=== PATIENT | male | born 1955 | race Caucasian/White ===

== ENCOUNTER 2016-07-30 11:15 | Observation (INO) | payer OTHER ==
[~2016-07-30] VITALS: Ht 177.8 cm; Wt 103.0 kg
[~2016-07-30 11:15] MED LIST: ASPIR-LOW81 MG PO; ATORVASTATIN CA80 MG PO; BRILINTA90 MG PO; GLIPIZIDE5 MG PO; GLUCOPHAGE500 MG PO; GLUCOPHAGE850 MG PO; LOPRESSOR25 MG PO; METFORMIN HCL500 MG PO; TYLENOL W/COD1 COMB1 PO; ZESTRIL5 MG PO
[2016-07-30 12:09] LABS: HEMATOCRIT 41.3 % (38.0-50.0); MCH 29.8 PG (29.0-34.0); MCHC 34.9 G/DL (30.0-36.0); MCV 85.5 FL (86-99); MEAN PLAT.VOLUME 10.3 uM^3 (9.0-12.4); PLATELET COUNT 232 K/uL (156-360); RED BLOOD COUNT 4.83 M/uL (4.00-5.50); WHITE BLOOD COUNT 7.8 K/uL (4.1-10.2)
[2016-07-30 12:20] LABS: CHLORIDE 105 mEq/L (99-109); POTASSIUM 4.9 mEq/L (3.7-5.4); SODIUM 141 mEq/L (136-147)
[2016-07-30 12:22] LABS: GLUCOSE 136 mg/dL (70-99)
[2016-07-30 12:23] LABS: ANION GAP 10 MEQ/L (2-14)
[2016-07-30 12:26] LABS: GFR ESTIMATE (CALCULATED) > 59 mL/min/
[2016-07-30 12:27] LABS: UREA NITROGEN (BUN) 16 mg/dL (9-23)
[2016-07-30 12:30] LABS: TROP-I INTERPRETATION NEGATIVE; TROPONIN-I < 0.01 ng/mL (0.0-0.30)
[2016-07-30] MEDS ORDERED: ZESTRIL20 MG PO (14:36)
[2016-07-30] MEDS ORDERED: GLIPIZIDE XL5 MG PO (14:38)
[2016-07-30] MEDS ORDERED: LIPITOR40 MG PO (14:38)
[2016-07-30] MEDS ORDERED: ZOLPIDEM TARTRA10 MG PO (14:39)
[2016-07-30] MEDS ORDERED: ASPIR 8181 M1 PO (14:39)
[2016-07-30] MEDS ORDERED: CO Q-10100 MG PO (14:39)
[2016-07-30] MEDS ORDERED: ONE DAILY FOR1 EAC2 PO (14:40)
[2016-07-30] MEDS ORDERED: NEURONTIN300 MG PO (14:46)
[2016-07-30 16:00] VITALS: BP 134/73
[2016-07-30 16:42] LABS: POINT-OF-CARE METER ID UU13113831
[2016-07-30 18:56] LABS: TROP-I INTERPRETATION NEGATIVE; TROPONIN-I 0.02 ng/mL (0.0-0.30)
[2016-07-30 21:40] VITALS: BP 119/77
[2016-07-30 23:05] LABS: POINT-OF-CARE METER ID UU14162513
[2016-07-31 00:50] VITALS: BP 116/63
[2016-07-31 01:01] LABS: TROP-I INTERPRETATION NEGATIVE; TROPONIN-I 0.02 ng/mL (0.0-0.30)
[2016-07-31 04:51] VITALS: BP 114/72
[2016-07-31 06:05] LABS: HEMATOCRIT 39.4 % (38.0-50.0); MCH 30.1 PG (29.0-34.0); MCHC 34.3 G/DL (30.0-36.0); MCV 87.8 FL (86-99); MEAN PLAT.VOLUME 10.9 uM^3 (9.0-12.4); PLATELET COUNT 194 K/uL (156-360); RBC DIS.WIDTH-CV 13.3 % (11.8-14.6); RBC DIS.WIDTH-SD 42.4 % (39-53); RED BLOOD COUNT 4.49 M/uL (4.00-5.50); WHITE BLOOD COUNT 6.6 K/uL (4.1-10.2)
[2016-07-31 06:30] LABS: ANION GAP 9 MEQ/L (2-14); CHLORIDE 106 MEQ/L (99-109); GFR ESTIMATE (CALCULATED) > 59 mL/min/; GLUCOSE 121 mg/dL (70-99); HDL CHOLESTEROL 34 MG/DL (Desirable>=40); LDL CHOLESTEROL 58 mg/dL (Desirable<100); NON-HDL CHOLESTEROL 80 mg/dL (Desirable<160); POTASSIUM 4.1 MEQ/L (3.7-5.4); SAMPLE HEMOLYSIS CHECK 0; SAMPLE ICTERIC CHECK 0; SAMPLE LIPEMIA CHECK 0; SODIUM 142 MEQ/L (136-147); TOTAL CHOLESTEROL 114 mg/dL (Desirable<200); TRIGLYCERIDES 112 MG/DL (Normal: <150); UREA NITROGEN (BUN) 13 mg/dL (9-23)
[2016-07-31 06:59] LABS: Estimated Average Glucose 151 mg/dL (70-123); HEMOGLOBIN A1c (GLYCOHEMOGLOB) 6.9 % HGB (Below 5.7)
[2016-07-31 08:00] VITALS: BP 121/74
[2016-07-31 08:42] LABS: POINT-OF-CARE METER ID UU14162513
== END 2016-07-31 11:45 | disposition home or self-care (01) ==
LOC: EME 11:15 → 5WEST 13:43 → EDOF 13:43 → 5WEST 15:52
PROVIDERS: Hospitalist; Nurse Practitioner Adult Health; Physician Assistant Medical
DX: R07.89 Other chest pain (principal); R68.84 Jaw pain; I10 Essential (primary) hypertension; E78.5 Hyperlipidemia, unspecified; E11.9 Type 2 diabetes mellitus without complications; I25.10 Atherosclerotic heart disease of native coronary artery without angina pectoris; I25.2 Old myocardial infarction; Z98.61 Coronary angioplasty status; Z79.82 Long term (current) use of aspirin; Z79.84 Long term (current) use of oral hypoglycemic drugs
CPT/HCPCS: 70450; 71020; 80048; 80061; 82948; 83036; 84484; 85027; 93005; 99281; 99284; G0378; J1815

== ENCOUNTER 2016-09-09 06:36 | Inpatient (IN) | payer OTHER ==
[~2016-09-09] VITALS: Ht 180.3 cm; Wt 98.0 kg
[2016-09-09] VITALS (15 sets, daily range): BP systolic 84–145; BP diastolic 64–89
[~2016-09-09 06:36] MED LIST changes: +ASPIR 8181 M1 PO; +CO Q-10100 MG PO; +GLIPIZIDE XL5 MG PO; +LIPITOR40 MG PO; +NEURONTIN300 MG PO; +ONE DAILY FOR1 EAC2 PO; +ZESTRIL20 MG PO; +ZOLPIDEM TARTRA10 MG PO
[2016-09-09 07:03] LABS: EOSINOPHIL (%) 2.3 % (0-5); EOSINOPHIL COUNT 0.2 K/uL (0-0.3); HEMATOCRIT 41.9 % (38.0-50.0); IMMATURE GRANULOCYTE (%) 0.1 % (0.0-0.7); IMMATURE GRANULOCYTE COUNT 0.1 K/uL; LYMPHOCYTE COUNT 2.6 K/uL (1.0-2.8); MCH 29.4 PG (29.0-34.0); MCHC 34.4 G/DL (30.0-36.0); MCV 85.7 FL (86-99); MEAN PLAT.VOLUME 10.3 uM^3 (9.0-12.4); MONOCYTE (%) 10.3 % (3-12); MONOCYTE COUNT 0.7 K/uL (0-0.8); NEUTROPHIL (%) 50.4 % (45-76); NEUTROPHIL COUNT 3.6 K/uL (1.8-6.4); PLATELET COUNT 267 K/uL (156-360); RBC DIS.WIDTH-CV 13.2 % (11.8-14.6); RBC DIS.WIDTH-SD 40.9 % (39-53); RED BLOOD COUNT 4.89 M/uL (4.00-5.50); WHITE BLOOD COUNT 7.1 K/uL (4.1-10.2)
[2016-09-09 07:35] LABS: PROTHROMBIN TIME 10.4 (9.2-11.2)
[2016-09-09 07:46] LABS: TROP-I INTERPRETATION NEGATIVE; TROPONIN-I < 0.01 ng/mL (0.0-0.30)
[2016-09-09 08:25] LABS: AMYLASE 63 IU/L (1-118); ANION GAP 10 MEQ/L (2-14); CHLORIDE 104 MEQ/L (99-109); POTASSIUM 4.1 MEQ/L (3.7-5.4); SAMPLE HEMOLYSIS CHECK 0; SAMPLE ICTERIC CHECK 0; SAMPLE LIPEMIA CHECK 0; SODIUM 138 MEQ/L (136-147)
[2016-09-09 08:31] LABS: GFR ESTIMATE (CALCULATED) > 59 mL/min/; GLUCOSE 165 mg/dL (70-99); LIPASE 26 U/L (1.0-51.0); SERUM ETHYL ALCOHOL < 10 mg/dL; UREA NITROGEN (BUN) 19 mg/dL (9-23)
[2016-09-09 12:07] LABS: METH RESISTANT S AUREUS PCR NEGATIVE (NEGATIVE)
[2016-09-09 12:10] LABS: PROBE CHECK PASS; SPECIMEN PROCESSING CONTROL PASS
[2016-09-09 13:11] LABS: POINT-OF-CARE METER ID UU14174217
[2016-09-09 17:48] LABS: POINT-OF-CARE METER ID UU14174217
[2016-09-09 18:21] LABS: TROP-I INTERPRETATION POSITIVE; TROPONIN-I 7.43 ng/mL (0.0-0.30)
[2016-09-09 21:41] LABS: POINT-OF-CARE METER ID UU13113803
[2016-09-10] VITALS (12 sets, daily range): BP systolic 107–135; BP diastolic 60–88
[2016-09-10 01:49] LABS: TROP-I INTERPRETATION POSITIVE; TROPONIN-I 4.37 ng/mL (0.0-0.30)
[2016-09-10 08:17] LABS: EOSINOPHIL COUNT 0.2 K/uL (0-0.3); HEMATOCRIT 42.7 % (38.0-50.0); IMMATURE GRANULOCYTE (%) 0.1 % (0.0-0.7); LYMPHOCYTE COUNT 1.6 K/uL (1.0-2.8); MCH 28.7 PG (29.0-34.0); MCHC 33.3 G/DL (30.0-36.0); MCV 86.3 FL (86-99); MEAN PLAT.VOLUME 10.1 uM^3 (9.0-12.4); MONOCYTE (%) 7.5 % (3-12); MONOCYTE COUNT 0.6 K/uL (0-0.8); NEUTROPHIL (%) 69.8 % (45-76); NEUTROPHIL COUNT 5.6 K/uL (1.8-6.4); PLATELET COUNT 244 K/uL (156-360); RBC DIS.WIDTH-CV 13.2 % (11.8-14.6); RBC DIS.WIDTH-SD 41.5 % (39-53); RED BLOOD COUNT 4.95 M/uL (4.00-5.50)
[2016-09-10 08:41] LABS: ANION GAP 8 MEQ/L (2-14); CHLORIDE 105 MEQ/L (99-109); GFR ESTIMATE (CALCULATED) > 59 mL/min/; GLUCOSE 170 mg/dL (70-99); POTASSIUM 4.3 MEQ/L (3.7-5.4); SAMPLE HEMOLYSIS CHECK 0; SAMPLE ICTERIC CHECK 0; SAMPLE LIPEMIA CHECK 0; SODIUM 140 MEQ/L (136-147); UREA NITROGEN (BUN) 13 mg/dL (9-23)
[2016-09-10 09:30] LABS: TROP-I INTERPRETATION POSITIVE
[2016-09-10] MEDS ORDERED: ATORVASTATIN CA80 MG PO (12:50)
[2016-09-10] MEDS ORDERED: BRILINTA90 MG PO (12:50)
== END 2016-09-10 16:00 | disposition home or self-care (01) | DRG 247 ==
LOC: EME 06:36 → SDC 07:44 → EME 07:44 → 4WEST 10:36
PROVIDERS: Emergency Medicine; Internal Medicine Cardiovascular Disease
PROC: B2111ZZ Fluoroscopy of Multiple Coronary Arteries using Low Osmolar Contrast (ICD-10-PCS; principal; 2016-09-09)
PROC: B2151ZZ Fluoroscopy of Left Heart using Low Osmolar Contrast (ICD-10-PCS; principal; 2016-09-09)
PROC: 027034Z Dilation of Coronary Artery, One Artery with Drug-eluting Intraluminal Device, Percutaneous Approach (ICD-10-PCS; principal; 2016-09-09)
PROC: 0270346 Dilation of Coronary Artery, One Artery, Bifurcation, with Drug-eluting Intraluminal Device, Percutaneous Approach (ICD-10-PCS; principal; 2016-09-09)
PROC: 4A023N7 Measurement of Cardiac Sampling and Pressure, Left Heart, Percutaneous Approach (ICD-10-PCS; principal; 2016-09-09)
PROC: 3E033PZ Introduction of Platelet Inhibitor into Peripheral Vein, Percutaneous Approach (ICD-10-PCS; 2016-09-09)
DX: I21.19 ST elevation (STEMI) myocardial infarction involving other coronary artery of inferior wall (principal); I25.10 Atherosclerotic heart disease of native coronary artery without angina pectoris; I10 Essential (primary) hypertension; E78.5 Hyperlipidemia, unspecified; E11.9 Type 2 diabetes mellitus without complications; Z23 Encounter for immunization; I25.2 Old myocardial infarction; Z95.5 Presence of coronary angioplasty implant and graft; Z79.82 Long term (current) use of aspirin; Z87.891 Personal history of nicotine dependence
CPT/HCPCS: 80048; 81003; 82150; 82948; 83690; 84484; 85025; 85347; 85610; 85730; 86850; 86900; 86901; 87641; 93005; 93306; 99281; 99285; C1725; C1769; C1874; C1887; G0480; J0461; J1644; J1815; J2250; J3010; J3246

== ENCOUNTER 2016-10-10 07:42 | Day surgery (SDC) | payer OTHER ==
[~2016-10-10] VITALS: Ht 177.8 cm; Wt 94.0 kg
[~2016-10-10 07:42] MED LIST changes: +GABAPENTIN300 MG PO
[2016-10-10 09:30] LABS: POINT-OF-CARE METER ID UU13113696; POINT-OF-CARE USER ID HMLCJM07
[2016-10-10 15:40] VITALS: BP 119/78
[2016-10-10 15:53] LABS: POINT-OF-CARE METER ID UU14174216
[2016-10-10 19:39] VITALS: BP 115/78
[2016-10-10 23:24] VITALS: BP 124/82
[2016-10-11 04:12] VITALS: BP 116/75
[2016-10-11 06:01] LABS: BASOPHIL COUNT 0.1 K/uL (0-0.1); EOSINOPHIL (%) 2.5 % (0-5); EOSINOPHIL COUNT 0.2 K/uL (0-0.3); HEMATOCRIT 39.6 % (38.0-50.0); IMMATURE GRANULOCYTE (%) 0.3 % (0.0-0.7); INSTRUMENT ABS NEUTROPHIL CT 4.8 K/uL; LYMPHOCYTE COUNT 2.2 K/uL (1.0-2.8); MCH 28.9 PG (29.0-34.0); MCHC 33.3 G/DL (30.0-36.0); MCV 86.8 FL (86-99); MEAN PLAT.VOLUME 10.2 uM^3 (9.0-12.4); MONOCYTE (%) 8.4 % (3-12); MONOCYTE COUNT 0.7 K/uL (0-0.8); NEUTROPHIL (%) 59.9 % (45-76); NEUTROPHIL COUNT 4.8 K/uL (1.8-6.4); PLATELET COUNT 216 K/uL (156-360); RBC DIS.WIDTH-CV 12.9 % (11.8-14.6); RBC DIS.WIDTH-SD 40.6 % (39-53); RED BLOOD COUNT 4.56 M/uL (4.00-5.50)
[2016-10-11 06:32] LABS: ANION GAP 8 MEQ/L (2-14); CHLORIDE 106 MEQ/L (99-109); GFR ESTIMATE (CALCULATED) > 59 mL/min/; GLUCOSE 123 mg/dL (70-99); POTASSIUM 4.7 MEQ/L (3.7-5.4); SAMPLE HEMOLYSIS CHECK 0; SAMPLE ICTERIC CHECK 0; SAMPLE LIPEMIA CHECK 0; SODIUM 141 MEQ/L (136-147); UREA NITROGEN (BUN) 17 mg/dL (9-23)
[2016-10-11 08:25] VITALS: BP 121/82
[2016-10-11 11:57] VITALS: BP 115/68
[2016-10-11 12:00] VITALS: BP 115/68
== END 2016-10-11 16:21 | disposition home or self-care (01) ==
LOC: CATH 07:42 → 4EAST 11:30 → 2SOUTH 11:30 → 4EAST 15:43
PROVIDERS: Internal Medicine Cardiovascular Disease
DX: I25.10 Atherosclerotic heart disease of native coronary artery without angina pectoris (principal); I25.2 Old myocardial infarction; E11.9 Type 2 diabetes mellitus without complications; Z79.01 Long term (current) use of anticoagulants; Z79.02 Long term (current) use of antithrombotics/antiplatelets; Z79.82 Long term (current) use of aspirin; Z79.84 Long term (current) use of oral hypoglycemic drugs
CPT/HCPCS: 80048; 82948; 85025; 85347; 93005; C1725; C1769; C1874; C1887; G0378; J1644; J2250; J3010; J7030